=== PATIENT | male | born 1945 | race Caucasian/White ===

== ENCOUNTER 2018-06-25 00:04 | Day surgery (SDC) | payer MEDICARE, OTHER ==
[~2018-06-25 00:04] MED LIST: A STATIN; ASPI81CH; Coumadin5 MG PO; Crestor40 MG PO; DONE5; ESCI10; HYDACE5; INTE3SY; NEPHROCAP; RIBA200; WARF5 PO
--- NOTE | 2018-06-25 08:20 | NUR ---
PT HERE FOR BLADDER SCAN TESTING. PT REPORTS HE DRANK ABOUT 20 OUNCES OF FLUID PRIOR TO TESTING. PRE-VOID BLADDER SCAN IS 190 ML. PT REPORTS HE HAS TO URINATE. ABLE TO VOID ONLY 50 ML URINE, LT YELLOW WITH CLOTS OR SEDIMENT. PVR = 157 ML.
[2018-06-25] MEDS ORDERED: LOSA25 PO (12:29)
[2018-06-25] MEDS ORDERED: CARV25 PO (12:30)
[2018-06-25] MEDS ORDERED: UBID10 PO (12:30)
[2018-06-25] MEDS ORDERED: ALBU90OI6 INH (12:31)
[2018-06-25] MEDS ORDERED: TIOT18 INH (12:31)
[2018-06-25] MEDS ORDERED: Advair Hfa 230-12 GM INH (12:32)
[2018-06-25] MEDS ORDERED: Advair Hfa 230-12 GM (12:32)
[2018-06-25] MEDS ORDERED: CVS GLUCOSAMIN1 EAC5 PO (12:33)
[2018-06-25] MEDS ORDERED: Omeprazole20 M1 PO (12:33)
[2018-06-25] MEDS ORDERED: HOME O2 (12:34)
[2018-06-25] MEDS ORDERED: CHOL10002 PO (12:34)
[2018-06-25] MEDS ORDERED: Voltaren100 GM TOP (12:36)
[2018-06-25] MEDS ORDERED: CLOB.05TO TOP (12:36)
[2018-06-25] MEDS ORDERED: BENEFIBER1 EAC1 PO (12:36)
[2018-06-25] MEDS ORDERED: POLY500 PO (12:37)
[2018-06-25] MEDS ORDERED: DOCCAL240 PO (12:38)
--- NOTE | 2018-06-25 12:42 | NUR ---
PT ONLY ABLE TO VOID 50 ML OF URINE.
--- NOTE | 2018-06-25 15:11 | NUR ---
PT HAD LAB WORK DONE AT OUTPATIENT LAB ON Monday06/22/18. SEE RESULTS IN EMR.
--- NOTE | 2018-06-25 15:40 | NUR ---
RESULTS OF PVR DONE TODAY FAXED TO DR. RIZZO AND TO DR. CLEMENTE AT [facility] PER PT'S REQUEST.
[2018-07-09] MEDS ORDERED: LOSA25 PO (08:11)
[2018-07-09] MEDS ORDERED: Co Q-10100 MG PO (08:14)
[2018-07-09] MEDS ORDERED: FLUT1DIS8 INH (08:16)
[2018-07-09] MEDS ORDERED: Ipratropium Bro15 ML (08:16)
[2018-07-09] MEDS ORDERED: 24 HOUR ALLER15.8 ML (08:18)
[2018-07-09] MEDS ORDERED: GNP GLUCOSAMIN1 EAC2 PO (08:19)
[2018-07-09] MEDS ORDERED: B Complex #11 EACH PO (08:19)
[2018-07-09] MEDS ORDERED: CLOB.05TO TOP (08:21)
[2018-07-09] MEDS ORDERED: BENEFIBER1 EAC1 PO (08:23)
[2018-07-09] MEDS ORDERED: DOC250 PO (08:23)
[2018-07-09] MEDS ORDERED: ZYRTEC10 M1 PO (08:24)
[2018-07-09] MEDS ORDERED: ASTEPRO205.5 MCG/ (08:26)
[2018-07-09] MEDS ORDERED: WARF1 PO (08:32)
[2018-07-09] MEDS ORDERED: WARF2 PO (08:33)
== END 2018-06-25 23:04 | disposition home or self-care (01) ==
LOC: ATC 00:04
DX: R39.81 Functional urinary incontinence (principal); R60.9 Edema, unspecified
CPT/HCPCS: 51798

== ENCOUNTER 2018-07-17 07:34 | Day surgery (SDC) | payer MEDICARE, OTHER ==
[~2018-07-17] VITALS: Ht 182.9 cm; Wt 101.2 kg
[~2018-07-17 07:34] MED LIST changes: +24 HOUR ALLER15.8 ML; +ALBU90OI6 INH; +ASTEPRO205.5 MCG/; +Advair Hfa 230-12 GM; +Advair Hfa 230-12 GM INH; +B Complex #11 EACH PO; +BENEFIBER1 EAC1 PO; +CARV25 PO; +CHOL10002 PO; +CLOB.05TO TOP; +CVS GLUCOSAMIN1 EAC5 PO; +Co Q-10100 MG PO; +DOC250 PO; +DOCCAL240 PO; +FLUT1DIS8 INH; +GNP GLUCOSAMIN1 EAC2 PO; +HOME O2; +Ipratropium Bro15 ML; +LOSA25 PO; +Omeprazole20 M1 PO; +POLY500 PO; +TIOT18 INH; +UBID10 PO; +Voltaren100 GM TOP; +WARF1 PO; +WARF2 PO; +ZYRTEC10 M1 PO
[2018-07-17] MEDS ORDERED: ENOX40I (08:23)
== END 2018-07-17 10:15 | disposition home or self-care (01) ==
LOC: ORSCSDS 07:34
PROVIDERS: Internal Medicine Gastroenterology
PROC: 0DBL8ZX Excision of Transverse Colon, Via Natural or Artificial Opening Endoscopic, Diagnostic (ICD-10-PCS; principal; 2018-07-17 08:45)
PROC: 0DBK8ZX Excision of Ascending Colon, Via Natural or Artificial Opening Endoscopic, Diagnostic (ICD-10-PCS; principal; 2018-07-17 08:45)
PROC: 0DB68ZX Excision of Stomach, Via Natural or Artificial Opening Endoscopic, Diagnostic (ICD-10-PCS; principal; 2018-07-17 08:45)
PROC: 0DB58ZX Excision of Esophagus, Via Natural or Artificial Opening Endoscopic, Diagnostic (ICD-10-PCS; principal; 2018-07-17 08:45)
PROC: 0DBP8ZX Excision of Rectum, Via Natural or Artificial Opening Endoscopic, Diagnostic (ICD-10-PCS; principal; 2018-07-17 08:45)
DX: K22.70 Barrett's esophagus without dysplasia (principal); K74.60 Unspecified cirrhosis of liver; K31.7 Polyp of stomach and duodenum; Z86.010 Personal history of colon polyps; D12.3 Benign neoplasm of transverse colon; K52.9 Noninfective gastroenteritis and colitis, unspecified; K57.30 Diverticulosis of large intestine without perforation or abscess without bleeding; K64.8 Other hemorrhoids; I10 Essential (primary) hypertension; E11.9 Type 2 diabetes mellitus without complications; E78.5 Hyperlipidemia, unspecified; I25.10 Atherosclerotic heart disease of native coronary artery without angina pectoris; J44.9 Chronic obstructive pulmonary disease, unspecified; Z86.73 Personal history of transient ischemic attack (TIA), and cerebral infarction without residual deficits; Z87.891 Personal history of nicotine dependence; Z95.0 Presence of cardiac pacemaker; Z79.899 Other long term (current) drug therapy; Z79.82 Long term (current) use of aspirin; Z79.01 Long term (current) use of anticoagulants
CPT/HCPCS: 88305; 88312; J0330; J1980; J2405; J7120

== ENCOUNTER 2018-12-12 07:02 | Day surgery (SDC) | payer MEDICARE, OTHER ==
[~2018-12-12] VITALS: Ht 182.9 cm; Wt 226.0 kg
[~2018-12-12 07:02] MED LIST changes: +ENOX40I
--- NOTE | 2018-12-12 07:54 | NUR ---
12/12/18 0754 Gema Rush AT BEDSIDE
== END 2018-12-12 09:10 | disposition home or self-care (01) ==
LOC: ORSCSDS 07:02
PROVIDERS: Ophthalmology
PROC: 08RK3JZ Replacement of Left Lens with Synthetic Substitute, Percutaneous Approach (ICD-10-PCS; principal; 2018-12-12 08:30)
DX: H25.12 Age-related nuclear cataract, left eye (principal); H21.81 Floppy iris syndrome; Z86.718 Personal history of other venous thrombosis and embolism; I10 Essential (primary) hypertension; Z95.1 Presence of aortocoronary bypass graft; Z95.0 Presence of cardiac pacemaker; Z79.01 Long term (current) use of anticoagulants; Z79.82 Long term (current) use of aspirin; Z79.899 Other long term (current) drug therapy
CPT/HCPCS: J2001; J2250; J3301; J7040; J7120; V2632

== ENCOUNTER 2019-02-15 12:18 | Emergency (ER) | payer MEDICARE, OTHER ==
[~2019-02-15] VITALS: Ht 177.8 cm; Wt 101.2 kg
[2019-02-15] MEDS ORDERED: TAMS.4ER PO (12:50)
[2019-02-15] MEDS ORDERED: WARF5 PO (12:51)
[2019-02-15 12:52] LABS: BASOPHILS ABSOLUTE AUTO 0.03 K/mm3 (0.00-0.23); BASOPHILS PERCENT AUTO 1 % (0-2); EOSINOPHILS ABSOLUTE AUTO 0.16 K/mm3 (0.00-0.68); EOSINOPHILS PERCENT AUTO 3 % (0-6); Hematocrit 41.5 % (37.0-53.0); Hemoglobin 13.9 g/dL (13.5-17.5); IMMATURE GRAN ABSOLUTE AUTO 0.01 K/mm3 (0.00-0.10); IMMATURE GRAN PERCENT AUTO 0 % (0-1); LYMPHOCYTES PERCENT AUTO 25 % (21-46); MONOCYTES ABSOLUTE AUTO 0.57 K/mm3 (0.16-1.47); MONOCYTES PERCENT AUTO 10 % (4-13); Mean Corpuscular HGB 30.8 pg (26.0-34.0); Mean Corpuscular HGB Conc 33.5 g/dL (31.5-36.5); Mean Corpuscular Volume 92 fL (80-100); Mean Platelet Volume 10.1 fL (9.1-12.4); NEUTROPHILS ABSOLUTE AUTO 3.35 K/mm3 (1.96-9.15); NEUTROPHILS PERCENT AUTO 61 % (41-73); Platelet Count 116 K/mm3 (150-400); RDW Coefficient Variation 13.9 % (11.7-14.2); RDW Standard Deviation 47.3 fL (35.1-46.3); Red Blood Cell Count 4.52 M/mm3 (4.30-5.90); White Blood Cell Count 5.52 K/mm3 (4.00-11.30)
[2019-02-15 13:10] LABS: Alanine Aminotransfer (ALT/SGP 24 U/L (12-78); Albumin, Blood 3.6 g/dL (3.4-5.0); Alk Phos 42 U/L (50-136); Anion Gap 4 mmol/L (6-16); Aspartate Aminotrans (AST/SGOT 19 U/L (12-37); Bilirubin, Total 0.7 mg/dL (0.1-1.0); Blood Urea Nitrogen 22 mg/dL (8-24); Bun/Creatinine Ratio 25.6 (12.0-20.0); CO2, Blood 27 mmol/L (21-32); Calcium, Blood 8.9 mg/dL (8.5-10.1); Chloride, Blood 111 mmol/L (98-108); Creatinine, Blood 0.86 mg/dL (0.60-1.20); Globulin, Blood 3.7 g/dL (2.2-4.0); Glomerular Filtration Rate >60 (60-); Glucose, Blood 96 mg/dL (70-99); Potassium, Blood 4.2 mmol/L (3.5-5.5); Sodium, Blood 142 mmol/L (136-145); Total Protein, Blood 7.3 g/dL (6.4-8.2); Troponin I <0.015 ng/mL (0.000-0.040)
[2019-02-15 13:40] LABS: International Normalized Ratio 4.91
== END 2019-02-15 14:35 | disposition home or self-care (01) ==
LOC: ER 12:18
PROVIDERS: Emergency Medicine
DX: R00.8 Other abnormalities of heart beat (principal); R79.1 Abnormal coagulation profile; J43.9 Emphysema, unspecified; I10 Essential (primary) hypertension; I25.10 Atherosclerotic heart disease of native coronary artery without angina pectoris; Z95.0 Presence of cardiac pacemaker; Z86.718 Personal history of other venous thrombosis and embolism; Z95.1 Presence of aortocoronary bypass graft; Z88.8 Allergy status to other drugs, medicaments and biological substances; Z79.899 Other long term (current) drug therapy; Z79.01 Long term (current) use of anticoagulants
CPT/HCPCS: 36415; 80053; 84484; 85025; 85610; 93005; 93010; 99284-25; J7030

== ENCOUNTER → 2019-06-10 | Outpatient (CLI) | payer MEDICARE, OTHER ==
[~2019-06-10] MED LIST changes: +TAMS.4ER PO
== END | disposition home or self-care (01) ==
LOC: PLD 09:22 → LAB SHORT 09:22
DX: D48.5 Neoplasm of uncertain behavior of skin (principal)
CPT/HCPCS: 88305

== ENCOUNTER 2019-07-25 12:27 | Emergency (ER) | payer OTHER, MEDICARE ==
[~2019-07-25] VITALS: Ht 182.9 cm; Wt 90.7 kg
[2019-07-25] MEDS ORDERED: ELIQUIS2.5 MG (16:56)
[2019-07-25 16:58] LABS: BASOPHILS ABSOLUTE AUTO 0.04 K/mm3 (0.00-0.23); BASOPHILS PERCENT AUTO 1 % (0-2); EOSINOPHILS ABSOLUTE AUTO 0.19 K/mm3 (0.00-0.68); EOSINOPHILS PERCENT AUTO 3 % (0-6); Hematocrit 43.5 % (37.0-53.0); Hemoglobin 14.3 g/dL (13.5-17.5); IMMATURE GRAN ABSOLUTE AUTO 0.01 K/mm3 (0.00-0.10); IMMATURE GRAN PERCENT AUTO 0 % (0-1); LYMPHOCYTES ABSOLUTE AUTO 2.05 K/mm3 (0.84-5.20); LYMPHOCYTES PERCENT AUTO 29 % (21-46); MONOCYTES ABSOLUTE AUTO 0.73 K/mm3 (0.16-1.47); MONOCYTES PERCENT AUTO 10 % (4-13); Mean Corpuscular HGB Conc 32.9 g/dL (31.5-36.5); Mean Corpuscular Volume 94 fL (80-100); Mean Platelet Volume 10.4 fL (9.1-12.4); NEUTROPHILS ABSOLUTE AUTO 4.12 K/mm3 (1.96-9.15); NEUTROPHILS PERCENT AUTO 58 % (41-73); Platelet Count 141 K/mm3 (150-400); RDW Coefficient Variation 13.3 % (11.7-14.2); RDW Standard Deviation 46.2 fL (35.1-46.3); Red Blood Cell Count 4.61 M/mm3 (4.30-5.90); White Blood Cell Count 7.14 K/mm3 (4.00-11.30)
[2019-07-25 17:13] LABS: Anion Gap 4 mmol/L (6-16); Blood Urea Nitrogen 16 mg/dL (8-24); Bun/Creatinine Ratio 21.7 (12.0-20.0); CO2, Blood 25 mmol/L (21-32); Calcium, Blood 9.2 mg/dL (8.5-10.1); Chloride, Blood 109 mmol/L (98-108); Creatinine, Blood 0.74 mg/dL (0.60-1.20); Glomerular Filtration Rate >60 (60-); Glucose, Blood 104 mg/dL (70-99); Potassium, Blood 3.6 mmol/L (3.5-5.5); Sodium, Blood 138 mmol/L (136-145)
[2019-07-25] MEDS ORDERED: Norco 5-325 Ta1 EACH PO (18:48)
== END 2019-07-25 19:02 | disposition home or self-care (01) ==
LOC: ER 12:27
PROVIDERS: Physician Assistant
DX: S20.212A Contusion of left front wall of thorax, initial encounter (principal); M25.521 Pain in right elbow; I10 Essential (primary) hypertension; J43.9 Emphysema, unspecified; Z79.899 Other long term (current) drug therapy; W18.30XA Fall on same level, unspecified, initial encounter
CPT/HCPCS: 36415; 70450; 71101; 73070; 74177; 80048; 83690; 85025; 96360-59; 99284-25; J7120; Q9967